=== PATIENT | female | born 2000 | race African-American/Black ===

== ENCOUNTER 2021-06-09 22:49 | Emergency (ER) | payer OTHER ==
[~2021-06-09] VITALS: Ht 177.8 cm; Wt 70.3 kg
[2021-06-09] MEDS ORDERED: FAMOTIDINE 20 MG/2 ML VIAL IV STA (23:06)
[2021-06-09] MEDS ORDERED: ONDANSETRON HCL INJ 2MG/ML 2ML 2 MG/ML VIAL IV STA (23:08)
[2021-06-09] MEDS ORDERED: DONNATAL/LIDOCAINE/MAALOX 30 ML SUSP PO ONE (23:15)
[2021-06-09] MEDS ORDERED: BELLADONNA ALK/PHENOBARBITAL 5 ML UDC ONE (23:46)
[2021-06-09] MEDS ORDERED: LIDOCAINE VISC 2% SOLN 15 ML UDC ONE (23:46)
[2021-06-09] MEDS ORDERED: MAGNESIUM/ALUMINUM/SIMETHICONE 30 ML UDC ONE (23:46)
[2021-06-10] MEDS ORDERED: IOPAMIDOL 370 MG/ML 100 ML INFUS..BTL INJ ONE (00:24)
[2021-06-10] MEDS ORDERED: SODIUM CHLORIDE 0.9% 50ML 50 ML ONE (00:24)
[2021-06-10] MEDS ORDERED: KETOROLAC TROMETHAMINE 30 MG/ML VIAL IV STA (00:28)
[2021-06-10] MEDS ORDERED: KETOROLAC TROMETHAMINE 30 MG/ML VIAL ONE (00:50)
[2021-06-10] MEDS ORDERED: ONDANSETRON ODT4 MG PO (01:05)
[2021-06-10] MEDS ORDERED: DICYCLOMINE HCL20 MG PO (01:05)
== END 2021-06-10 01:45 | disposition home or self-care (01) ==
LOC: FSED 22:51
DX: R10.12 Left upper quadrant pain (principal); R11.2 Nausea with vomiting, unspecified
CPT/HCPCS: 74177; 80053; 81003; 81025; 85025; 99284; J1885; J2405; Q9967